=== PATIENT | female | born 1990 | race Caucasian/White ===

== ENCOUNTER 2017-05-17 16:43 | Emergency (ER) | payer MEDICAID ==
--- NOTE | 2017-05-17 18:16 | EDM.PDOC ---
ED HPI GENERAL MEDICAL PROBLEM - General Time Seen by Provider: 05/17/17 17:15 Source of Information: Reports: Patient History Limitations: Reports: No Limitations - History of Present Illness INITIAL COMMENTS - FREE TEXT/NARRATIVE: According to patient she has been having mild cough and nasal congestion for past 3 days now. She has been running low grade fever of 99F for past 3 days. No nausea or vomiting. No productive sputum. No wheezing or shortness of breath. She claims her chest hurts if she takes deep breath. Pt is diabetic and her blood sugars are slightly elevated, hence she did come in to make sure she is not having pneumonia or any other infection. Severity: Mild Improves with: Reports: None Worsens with: Reports: None Associated Symptoms: Reports: Chest Pain, Cough, Fever/Chills. Denies: Confusion, Nausea/Vomiting, Rash, Shortness of Breath, Syncope, Weakness - Related Data Allergies Allergy/AdvReac Type Severity Reaction Status Date / Time amoxicillin trihydrate Allergy Nausea and Verified 04/08/14 12:26 [From Augmentin] Vomiting potassium clavulanate Allergy Nausea and Verified 04/08/14 12:26 [From Augmentin] Vomiting Home Meds: Home Meds PNV95/Ferrous Fumarate/FA [ Multivitamins] 1 each PO DAILY 04/08/14 [ History] Subcutaneous Insulin Pump [Insulin Pump] 1 each MC DAILY 04/08/14 [History] Past Medical History - Past Health History Medical/Surgical History: Denies Medical/Surgical History Social & Family History - Tobacco Use Smoking Status *Q: Light Tobacco Smoker ED ROS GENERAL - Review of Systems Review Of Systems: See Below Constitutional: Reports: Fever. Denies: Chills, Malaise, Weakness HEENT: Reports: Rhinitis, Sinus Problem. Denies: Throat Pain, Throat Swelling Respiratory: Reports: Pleuritic Chest Pain, Cough. Denies: Shortness of Breath , Wheezing, Sputum Cardiovascular: Denies: Chest Pain, Lightheadedness GI/Abdominal: Denies: Abdominal Pain, Nausea, Vomiting : Denies: Dysuria, Flank Pain, Frequency Musculoskeletal: Denies: Joint Pain, Joint Swelling ED EXAM, GENERAL - Physical Exam Exam: See Below Exam Limited By: No Limitations General Appearance: Alert, WD/WN, No Apparent Distress Eye Exam: Bilateral Eye: EOMI, PERRL Ears: Normal External Exam, Normal Canal, Hearing Grossly Normal, Normal TMs Ear Exam: Bilateral Ear: Auricle Normal, Canal Normal, TM normal Nose: Normal Inspection, Normal Mucosa, No Blood, Nasal Drainage (clear) Throat/Mouth: Normal Inspection, Normal Lips, Normal Teeth, Normal Gums, Normal Oropharynx, Normal Voice, No Airway Compromise Head: Atraumatic, Normocephalic Neck: Normal Inspection, Supple, Non-Tender, Full Range of Motion Respiratory/Chest: No Respiratory Distress, Lungs Clear, Normal Breath Sounds, No Accessory Muscle Use, Chest Non-Tender Cardiovascular: Normal Peripheral Pulses, Regular Rate, Rhythm, No Edema, No Gallop, No JVD, No Murmur, No Rub GI/Abdominal: Normal Bowel Sounds, Soft, Non-Tender, No Organomegaly, No Distention, No Abnormal Bruit, No Mass Extremities: Normal Inspection, Normal Range of Motion, Non-Tender Neurological: Alert, Oriented Skin Exam: Warm, Intact Course - Vital Signs Text/Narrative:: Pt's CBC and BMP appear normal. Her Chest xray appears normal. Her Blood sugar post prandial is 331. She does have elevated blood sugar which could be reactive elevation due to her URI. I have advised her to increase the insulin per her Insulin pump calculations. Reassured that she has viral pleurisy with URI. zyrtec 10mg daily.Motrin 600mg 3 times daily as needed for pleurisy. If symptoms worsen, advised to followup in the clinic. - Orders/Labs/Meds Orders: Active Orders 24 hr Category Date Time Status Chest 2V [CR] Stat Exams 05/17/17 17:05 Taken Labs: Laboratory Tests 05/17/17 05/17/17 Range/Units 17:20 17:20 WBC 7.8 (4.0-11.0) K/uL RBC 4.47 (3.80-5.80) M/uL Hgb 12.9 (11.5-16.5) g/dL Hct 38.2 (37.0-47.0) % MCV 86 (76-96) fL MCH 28.9 (27.0-32.0) pg MCHC 33.8 (31.0-35.0) g/dL RDW 13.2 (11.0-16.0) % Plt Count 251 (150-500) K/uL MPV 9.7 (6.0-10.0) fL Neut % (Auto) 51.3 (45.0-70.0) % Lymph % (Auto) 39.5 (20.0-40.0) % Mayes % (Auto) 6.2 (3.0-10.0) % Eos % (Auto) 2.2 (1.0-5.0) % Baso % (Auto) 0.8 H (0.0-0.5) % Neut # (Auto) 4.01 (2.00-7.50) K/uL Lymph # (Auto) 3.08 (1.50-4.00) K/uL Mayes # (Auto) 0.48 (0.20-0.80) K/uL Eos # (Auto) 0.17 (0.04-0.40) K/uL Baso # (Auto) 0.06 (0.02-0.10) K/uL Sodium 139 (136-145) mmol/L Potassium 4.6 (3.5-5.1) mmol/L Chloride 100 (98-107) mmol/L Carbon Dioxide 29.8 (21.0-32.0) mmol/L Anion Gap 13.8 (5.0-15.0) mmol/L BUN 15 (8-26) mg/dL Creatinine 0.84 (0.55-1.02) mg/dL Est Cr Clr Drug Dosing TNP Estimated GFR (MDRD) > 60 (>60) MLS/MIN BUN/Creatinine Ratio 17.9 (6-25) Glucose 301 H D (74-100) mg/dL Calcium 10.1 (8.5-10.1) mg/dL Departure - Departure Time of Disposition: 17:45 Disposition: Home, Self-Care 01 Condition: Good Clinical Impression: URI (upper respiratory infection), Pleurisy - Discharge Information Referrals: PCP,None [Primary Care Provider] - Additional Instructions: Pt's CBC and BMP appear normal. Her Chest xray appears normal. Her Blood sugar post prandial is 331. She does have elevated blood sugar which could be reactive elevation due to her URI. I have advised her to increase the insulin per her Insulin pump calculations. Reassured that she has viral pleurisy with URI. zyrtec 10mg daily.Motrin 600mg 3 times daily as needed for pleurisy. If symptoms worsen, advised to followup in the clinic. - Problem List & Annotations (1) Pleurisy SNOMED Code(s): 115636776 Code(s): R09.1 - PLEURISY Status: Acute Current Visit: Yes (2) URI (upper respiratory infection) SNOMED Code(s): 72280203 Code(s): J06.9 - ACUTE UPPER RESPIRATORY INFECTION, UNSPECIFIED Status: Acute Current Visit: Yes - Problem List Review Problem List Initiated/Reviewed/Updated: Yes - My Orders Last 24 Hours: My Active Orders 05/17/17 17:05 Chest 2V [CR] Stat - Assessment/Plan Last 24 Hours: My Active Orders 05/17/17 17:05 Chest 2V [CR] Stat Assessment:: URI with Pleurisy Plan: Pt's CBC and BMP appear normal. Her Chest xray appears normal. Her Blood sugar post prandial is 331. She does have elevated blood sugar which could be reactive elevation due to her URI. I have advised her to increase the insulin per her Insulin pump calculations. Reassured that she has viral pleurisy with URI. zyrtec 10mg daily.Motrin 600mg 3 times daily as needed for pleurisy. If symptoms worsen, advised to followup in the clinic.
--- NOTE | 2017-05-18 12:05 | CR ---
DATE OF SERVICE: 05/17/17 CLINICAL DATA: cough PA AND LATERAL CHEST: Comparison is made to a prior exam dated 03/25/10. The heart size is normal. The lungs are clear. No pneumothorax. No pleural effusions. No areas of consolidation. IMPRESSION: No evidence of acute intrathoracic disease. [id number] [facility]
== END 2017-05-17 18:00 | disposition home or self-care (01) ==
LOC: LB.ED 16:43
DX: J06.9 Acute upper respiratory infection, unspecified (principal); R09.1 Pleurisy; F17.200 Nicotine dependence, unspecified, uncomplicated; Z88.1 Allergy status to other antibiotic agents; Z79.4 Long term (current) use of insulin
CPT/HCPCS: 36415; 71020; 80048; 85025; 99283

== ENCOUNTER 2018-10-22 10:01 | Day surgery (SDC) | payer MEDICAID ==
[~2018-10-22 10:01] MED LIST: Clindamycin Phosphate 900 MG in Sodium Chloride 0.9% 100 ML IV SCH
[2018-10-22] MEDS ORDERED: Lactated Ringers 1,000 ML IV SCH (10:30)
[2018-10-22] MEDS ORDERED: Clindamycin Phosphate 900 MG/6 ML SDV IV ONE (11:00)
[2018-10-22] MEDS ORDERED: ceFAZolin 2 GM in Sodium Chloride 0.9% 100 ML IV SCH (11:30)
[2018-10-22] MEDS ORDERED: Bupivacaine 0.5% 10 ML SDV ONE (13:00)
[2018-10-22] MEDS ORDERED: Lidocaine 2% with EPINEPHrine 1:100,000 20 ML MDV ONE (13:00)
[2018-10-22] MEDS ORDERED: Dexamethasone 4 MG/ML SDV ONE ×2 (13:00→13:55)
[2018-10-22] MEDS ORDERED: Ondansetron 4 MG/2 ML SDV ONE (13:55)
[2018-10-22] MEDS ORDERED: Propofol 1,000 MG/100 ML SDV ONE (13:55)
[2018-10-22] MEDS ORDERED: fentaNYL 100 MCG/2 ML SDV ONE (13:55)
[2018-10-22] MEDS ORDERED: Midazolam 1 MG/ML 2 ML SDV ONE (13:55)
[2018-10-22] MEDS ORDERED: Ketorolac 30 MG/ML SDV ONE (13:55)
[2018-10-22 15:26] VITALS: BP 124/68
== END 2018-10-22 14:50 | disposition home or self-care (01) ==
LOC: LB.SDS 10:01
PROVIDERS: ATTEND Podiatrist Foot & Ankle Surgery
DX: M21.622 Bunionette of left foot (principal); E10.319 Type 1 diabetes mellitus with unspecified diabetic retinopathy without macular edema; F41.8 Other specified anxiety disorders; F17.200 Nicotine dependence, unspecified, uncomplicated; H66.91 Otitis media, unspecified, right ear; Z88.0 Allergy status to penicillin; Z96.41 Presence of insulin pump (external) (internal); Z79.899 Other long term (current) drug therapy
CPT/HCPCS: 82962; J0690; J1100; J1885; J2250; J2405; J2704; J3010; J3490; J7030; J7120

== ENCOUNTER 2018-10-23 13:37 | Emergency (ER) | payer MEDICAID ==
[2018-10-23 14:53] LABS: HEMOGLOBIN A1C 11.5 % (4.5-6.2)
--- NOTE | 2018-10-23 16:05 | EDM.PDOC ---
ED HPI GENERAL MEDICAL PROBLEM - General Chief Complaint: Diabetic Complaint Stated Complaint: BLOOD SUGAR HIGH Time Seen by Provider: 10/23/18 14:30 Source of Information: Reports: Patient History Limitations: Reports: No Limitations - History of Present Illness INITIAL COMMENTS - FREE TEXT/NARRATIVE: This patient presents to the ED for evaluation of hyperglycemia. She states she has had elevated blood sugars for the past 5 days that have been over 250. She uses a pump and is typically in good control with her last HbgA1c of 7. She was changed from NovoLog to Admelog last fall and has had more difficulty regulating her sugar despite dietary monitoring. She believes the Admelog just doesn't work as well for her but her insurance plan will not authorize her to use this medication. She denies other symtpoms or concerns but is afraid to go up too much more on her daily insulin dosing. Onset: Gradual Onset Date: 10/19/18 Onset Time: 08:00 Duration: Constant Location: Reports: Other (blood sugar) Associated Symptoms: Reports: No Other Symptoms - Related Data Allergies Allergy/AdvReac Type Severity Reaction Status Date / Time amoxicillin trihydrate AdvReac Nausea and Verified 10/22/18 11:16 [From Augmentin] Vomiting potassium clavulanate AdvReac Nausea and Verified 10/22/18 11:16 [From Augmentin] Vomiting Home Meds: Home Meds PNV95/Ferrous Fumarate/FA [ Multivitamins] 1 each PO DAILY 04/08/14 [ History] Subcutaneous Insulin Pump [Insulin Pump] 1 each MC DAILY 04/08/14 [History] ALPRAZolam [Alprazolam] 0.25 mg PO DAILY 10/20/18 [History] buPROPion [Wellbutrin SR] 300 mg PO DAILY 10/20/18 [History] Past Medical History - Past Health History Medical/Surgical History: Denies Medical/Surgical History [employer]ER History: Reports: Endocrine/Metabolic History: Reports: Diabetes, Type I Social & Family History - Family History Family Medical History: Noncontributory - Caffeine Use Caffeine Use: Reports: Soda ED ROS GENERAL - Review of Systems Review Of Systems: ROS reveals no pertinent complaints other than HPI. Endocrine: Reports: High Glucose. Denies: Fatigue, Polydypsia, Polyuria ED EXAM GENERAL NO PERIP PULSE - Physical Exam Exam: See Below Exam Limited By: No Limitations General Appearance: Alert, WD/WN, No Apparent Distress Eye Exam: Bilateral Eye: PERRL Ears: Normal External Exam Nose: Normal Inspection Throat/Mouth: Normal Inspection Head: Atraumatic, Normocephalic Neck: Normal Inspection, Supple, Non-Tender, Full Range of Motion Respiratory/Chest: No Respiratory Distress, No Accessory Muscle Use Extremities: Normal Inspection, Normal Range of Motion, Non-Tender, No Pedal Edema, Normal Capillary Refill, Other (had a scheduled bunionectomy yesterday) Neurological: Alert, Oriented Skin Exam: Warm, Dry, Intact Course - Orders/Labs/Meds Labs: Laboratory Tests 10/23/18 Range/Units 14:44 Hemoglobin A1c 11.5 H D (4.5-6.2) % - Re-Assessments/Exams Free Text/Narrative Re-Assessment/Exam: 10/23/18 16:07 This patient presents to the ED for evaluation of hyperglycemia. She is normally in very good control with HgbA1c around 7; however, her HgbA1c today is 11.5. She believes that Admelog is not as effective for her as her NovoLog was in the past. Patient was instructed to increase both her regular and Admelog as needed to bring her blood sugar into a more acceptable range. She was concerns about how much insulin she could use in a day and was reassured that the amount will vary as needed. She has an appointment in the clinic schedule for tomorrow and can discuss this with her PCP in more detail. She should return to the ED as needed. Departure - Departure Time of Disposition: 15:30 Disposition: Home, Self-Care 01 Condition: Good Clinical Impression: Hyperglycemia due to type 1 diabetes mellitus - Discharge Information *PRESCRIPTION DRUG MONITORING PROGRAM REVIEWED*: Not Applicable *COPY OF PRESCRIPTION DRUG MONITORING REPORT IN PATIENT AILYN: Not Applicable Referrals: PCP,None [Primary Care Provider] - Forms: ED Department Discharge Care Plan Goals: Keep appointment with Zaria in am. Can titrate insulin as directed.
== END 2018-10-23 15:20 | disposition home or self-care (01) ==
LOC: LB.ED 13:37
DX: E10.65 Type 1 diabetes mellitus with hyperglycemia (principal); Z79.899 Other long term (current) drug therapy; Z88.1 Allergy status to other antibiotic agents
CPT/HCPCS: 36415; 83036; 99284

== ENCOUNTER 2022-04-11 06:00 | Day surgery (SDC) | payer MEDICAID ==
[2022-04-11] MEDS: Lactated Ringers 1,000 ML IV SCH (08:10)
[2022-04-11] MEDS: ceFAZolin 1 GM in Sodium Chloride 0.9% 50 ML IV ONE (09:00)
[2022-04-11] MEDS ORDERED: fentaNYL 100 MCG/2 ML SDV ONE (09:45)
[2022-04-11] MEDS ORDERED: Propofol 200 MG/20 ML SDV ONE (09:45)
[2022-04-11] MEDS: Acetaminophen/HYDROcodone 325-5 MG Tab PO PRN (10:15)
[2022-04-11] MEDS ORDERED: Lactated Ringers 1,000 ML IV SCH (13:00)
== END 2022-04-11 10:55 | disposition home or self-care (01) ==
LOC: LB.SDS 06:00
PROVIDERS: ATTEND Orthopaedic Surgery
DX: G56.01 Carpal tunnel syndrome, right upper limb (principal); E10.9 Type 1 diabetes mellitus without complications; Z79.899 Other long term (current) drug therapy
CPT/HCPCS: 82947; A9270-GY; J0690; J2704; J3010; J3490; J7120